=== PATIENT | male | born 1990 | race Caucasian/White ===

== ENCOUNTER 2018-12-13 15:01 | Emergency (ER) | payer SELFPAY, OTHER | END 2018-12-13 17:54 | disposition left against medical advice (07) | LOC: E/R 15:01 | DX: Z53.21 Procedure and treatment not carried out due to patient leaving prior to being seen by health care provider (principal) ==

== ENCOUNTER 2019-02-12 18:14 | Emergency (ER) | payer OTHER ==
[2019-02-12] MEDS: SOD CHLORIDE 0.9% 1,000 ML IV (18:32)
[2019-02-12] MEDS: ONDANSETRON 4 MG INJ IV ×3 (18:32→22:15)
[2019-02-12] MEDS: KETOROLAC 30 MG INJ IV (18:32)
[2019-02-12] MEDS: HYDROmorphONE 1 MG/ML SYG IV ×2 (18:33→20:36)
[2019-02-12 18:40] LABS: ADD MAN DIFF? NO
[2019-02-12 18:44] LABS: BASOPHILS % 0.4 % (0.0-2.0); EOSINOPHILS # 0.2 10^3/ul (0.0-0.5); EOSINOPHILS % 2.2 % (0.0-7.0); HEMATOCRIT 44.1 % (42.0-52.0); LYMPHOCYTES # 1.9 10^3/ul (0.8-2.9); LYMPHOCYTES % 22.3 % (15.0-51.0); MEAN CORPUSCULAR HEMOGLOBIN 30.3 pg (29.0-33.0); MEAN CORPUSCULAR VOLUME 89.1 fl (82.0-101.0); MEAN PLATELET VOLUME 9.3 fl (7.4-10.4); MONOCYTE # 0.6 10^3/ul (0.3-0.9); MONOCYTES % 7.1 % (0.0-11.0); NEUTROPHIL # 5.8 10^3/ul (1.6-7.5); NEUTROPHILS % 67.6 % (39.0-77.0); PLATELET COUNT 229 10^3/UL (140-415); RED BLOOD COUNT 4.95 10^6/ul (4.70-6.10); RED CELL DISTRIBUTION WIDTH 12.5 % (11.5-14.5)
[2019-02-12 18:44] LABS: WHITE BLOOD COUNT 8.5 10^3/ul (4.8-10.8)
[2019-02-12 19:02] LABS: INR 0.96; PROTIME 12.9 Sec (11.9-14.9)
[2019-02-12 19:03] LABS: PARTIAL THROMBOPLASTIN TIME 27.1 Sec (23.0-35.0)
[2019-02-12 19:05] LABS: ALANINE AMINOTRANSFERASE 21 IU/L (13-69); ALBUMIN 4.7 g/dl (3.3-4.9); ALBUMIN/GLOBULIN RATIO 1.38; ALKALINE PHOSPHATASE 113 IU/L (42-121); AMYLASE 89 U/L (11-123); ANION GAP 13 (5-13); ASPARTATE AMINO TRANSFERASE 22 IU/L (15-46); BILIRUBIN,INDIRECT 0.7 mg/dl (0-1.1); BILIRUBIN,TOTAL 0.7 mg/dl (0.2-1.3); BLOOD UREA NITROGEN 15 mg/dl (7-20); CARBON DIOXIDE 26 mmol/L (21-31); CHLORIDE 102 mmol/L (97-110); Estimated GFR > 60 mL/min (>60); GLUCOSE 91 mg/dl (70-220); LIPASE 71 U/L (23-300); POTASSIUM 4.2 mmol/L (3.5-5.1); SODIUM 141 mmol/L (135-144); TOTAL PROTEIN 8.1 g/dl (6.1-8.1)
[2019-02-12 19:07] LABS: ADD UMIC YES; UR ASCORBIC ACID NEGATIVE (NEGATIVE); UR BILIRUBIN (Dip) NEGATIVE (NEGATIVE); UR BLOOD (Dip) 3+ mg/dL (NEGATIVE); UR CLARITY CLOUDY (CLEAR); UR COLOR RED (YELLOW); UR GLUCOSE (Dip) NEGATIVE (NEGATIVE); UR KETONES (Dip) NEGATIVE (NEGATIVE); UR LEUKOCYTE ESTERASE (Dip) 3+ Leu/ul (NEGATIVE); UR NITRITE (Dip) NEGATIVE (NEGATIVE); UR RBC > 182 /HPF (0-5); UR SPECIFIC GRAVITY (Dip) 1.014 (1.003-1.030); UR TOTAL PROTEIN (Dip) 3+ mg/dl (NEGATIVE); UR UROBILINOGEN (Dip) NEGATIVE (NEGATIVE); UR WBC 151 /HPF (0-5)
[2019-02-12] MEDS: LIDOCAINE 2% 20 ML UROJET SYRINGE MM (19:17)
[2019-02-12] MEDS: LEVOFLOXACIN 500MG/D5W (PMX) 100 ML IVPB (21:57)
[2019-02-12] MEDS: TAMSULOSIN (SR) 0.4 MG CAP PO (21:57)
[2019-02-12] MEDS: HYDROmorphONE 2 MG/ML SYG IV (21:58)
== END 2019-02-12 23:00 | disposition home or self-care (01) ==
LOC: E/R 18:14
DX: N20.0 Calculus of kidney (principal); R33.9 Retention of urine, unspecified
CPT/HCPCS: 51702; 74176; 80053; 81001; 82150; 83690; 85025; 85610; 85730; 87086; 93005; 96361; 96365; 96375; 96376; 99285-25